=== PATIENT | female | born 1965 | race Caucasian/White ===

== ENCOUNTER 2022-06-29 15:02 | Emergency (ER) | payer MEDICAID, OTHER ==
[~2022-06-29] VITALS: Ht 175.3 cm; Wt 53.6 kg
[2022-06-29 16:08] VITALS: BP 121/85
== END 2022-06-29 18:27 | disposition left against medical advice (07) ==
LOC: EMS 15:02
DX: Z53.21 Procedure and treatment not carried out due to patient leaving prior to being seen by health care provider (principal)

== ENCOUNTER 2022-10-31 12:16 | Inpatient (IN) | payer MEDICAID, OTHER ==
[~2022-10-31] VITALS: Ht 170.2 cm; Wt 84.7 kg
[2022-10-31] MEDS ORDERED: FUROSEMIDE 40 MG/4 ML VIAL IVP ONE (13:00)
[2022-10-31] MEDS ORDERED: LORazepam 2 MG/ML VIAL IM ONE (13:45)
[2022-10-31 14:35] LABS: COVID AG,FIA SOURCE NASOPHARYNGEAL
[2022-10-31] MEDS ORDERED: LORazepam 2 MG/ML VIAL IVP ONE (16:30)
[2022-10-31 17:07] LABS: BASOPHILS % (AUTO) 1.9 % (0.0-2.0); EOSINOPHILS % (AUTO) 0.3 % (1.0-6.0); HEMATOCRIT 36.4 % (36-46); HEMOGLOBIN 10.9 g/dL (12.0-16.0); LYMPHOCYTES # (AUTO) 1.3 K/uL (1.0-4.8); LYMPHOCYTES % (AUTO) 18.3 % (22.0-44.0); MEAN CORPUSCULAR HEMOGLOBIN 22.8 pg (26.0-34.0); MEAN CORPUSCULAR HGB CONC 29.8 G/dL (31.0-37.0); MEAN CORPUSCULAR VOLUME 77 fL (80-100); MONOCYTES # (AUTO) 0.6 K/uL (0.1-1.0); MONOCYTES % (AUTO) 8.2 % (2.0-9.0); NEUTROPHILS % (AUTO) 71.3 % (40.0-70.0); PLATELET COUNT (AUTO) 232 K/uL (150-450); RED BLOOD CELL COUNT(AUTO) 4.76 MIL/uL (4.00-5.20); RED CELL DISTRIBUTION WIDTH 18.5 % (11.5-14.5)
[2022-10-31 17:18] LABS: ANION GAP 8 mmol/L (8-16); CALCIUM, TOTAL 8.5 mg/dL (8.8-10.5); CARBON DIOXIDE 29 mmol/L (22-29); CHLORIDE 104 mmol/L (98-107); CREATININE 0.84 mg/dL (0.60-1.30); GLUCOSE,RANDOM 105 mg/dL (70-110); POTASSIUM 4.3 mmol/L (3.5-5.1); SODIUM SERUM 141 mmol/L (136-145); UREA NITROGEN, BLOOD 26 mg/dL (7-18)
[2022-10-31 17:21] LABS: GLOMERULAR FILTR. RATE CALC > 60 mL/min (>60)
[2022-10-31 17:22] LABS: ALANINE AMINOTRANSFERASE 22 U/L (12-78); ALKALINE PHOSPHATASE 175 U/L (46-116); ASPARTATE AMINOTRANSFERASE 44 U/L (15-37); BILIRUBIN,TOTAL 1.1 mg/dL (0.1-1.0); TOTAL PROTEIN, SERUM 7.4 g/dL (6.4-8.2)
[2022-10-31 17:23] LABS: ALBUMIN 2.7 g/dL (3.4-5.0)
[2022-10-31 17:29] LABS: B-TYPE NATRIURETIC PEPTIDE 3450 pg/mL (0-100)
[2022-10-31] MEDS ORDERED: ACETAMINOPHEN 325 MG TABLET PO PRN (18:30)
[2022-10-31] MEDS ORDERED: ONDANSETRON HCL 4 MG/2 ML VIAL IVP PRN ×2 (18:30→23:45)
[2022-10-31] MEDS ORDERED: SERT-438 PO (23:31)
[2022-10-31] MEDS ORDERED: LISI2.5T13 PO (23:31)
[2022-10-31] MEDS ORDERED: LOSA-381 PO (23:31)
[2022-10-31] MEDS ORDERED: APIX5TAB PO (23:31)
[2022-10-31] MEDS ORDERED: FURO20TA4 PO (23:31)
[2022-10-31] MEDS ORDERED: SPIR-37 PO (23:31)
[2022-10-31] MEDS ORDERED: METO-408 PO (23:31)
[2022-10-31 23:45] VITALS: BP 135/87
[2022-10-31] MEDS ORDERED: IPRATROPIUM BROMIDE 0.5 MG/2.5 ML NEB SOLUTION NEB PRN (23:45)
[2022-10-31] MEDS ORDERED: HYDROCODONE/ACETAMINOPHEN 5-325 MG TABLET PO PRN (23:45)
[2022-10-31] MEDS ORDERED: MAGNESIUM HYDROXIDE SUSPENSION 30 ML UDCUP PO PRN (23:45)
[2022-10-31] MEDS ORDERED: ZOLPIDEM TARTRATE 5 MG TABLET PO PRN (23:45)
[2022-10-31] MEDS ORDERED: ALBUTEROL SULFATE 2.5 MG/0.5 ML NEB SOLUTION NEB PRN (23:45)
[2022-10-31] MEDS ORDERED: BISACODYL 10 MG RECTAL RECTAL SUPPOSITORY PR PRN (23:45)
[2022-10-31] MEDS ORDERED: MORPHINE SULFATE 2 MG/ML SYRINGE IVP PRN (23:45)
[2022-11-01 04:28] VITALS: BP 128/73
[2022-11-01 08:15] VITALS: BP 143/79
[2022-11-01] MEDS ORDERED: LISINOPRIL 5 MG TABLET PO SCH ×2 (09:00)
[2022-11-01 10:02] VITALS: BP 136/96
[2022-11-01] MEDS: SPIRONOLACTONE 25 MG TABLET PO SCH (10:07)
[2022-11-01] MEDS: LOSARTAN POTASSIUM 25 MG TABLET PO SCH (10:07)
[2022-11-01] MEDS: PANTOPRAZOLE SODIUM 40 MG DR TABLET PO SCH (10:08)
[2022-11-01] MEDS: METOPROLOL SUCCINATE 25 MG ER TABLET PO SCH (10:08)
[2022-11-01] MEDS: FUROSEMIDE 40 MG/4 ML VIAL IVP SCH ×2 (10:08→21:45)
[2022-11-01] MEDS: APIXABAN 5 MG TABLET PO SCH ×2 (10:08→21:45)
[2022-11-01 11:41] VITALS: BP 123/64
[2022-11-01 15:10] LABS: APPEARANCE,URINE CLEAR (CLEAR); BILIRUBIN,URINE NEGATIVE (NEGATIVE); GLUCOSE, URINE (UA) NEGATIVE (NEGATIVE); KETONES,URINE NEGATIVE (NEGATIVE); LEUKOCYTE ESTERASE ,URINE MODERATE (NEGATIVE); NITRATE,URINE NEGATIVE (NEGATIVE); OCCULT BLOOD,URINE LARGE (NEGATIVE); PROTEIN,URINE 30-70 mg/dL (NEGATIVE); SPECIFIC GRAVITIY, URINE 1.013 (1.003-1.030)
[2022-11-01 15:16] LABS: AMPHET/METH SCREEN,URINE POSITIVE (NEGATIVE); BARBITURATE SCREEN, URINE NEGATIVE (NEGATIVE); BENZODIAZEPINES SCREEN,URINE NEGATIVE (NEGATIVE); CANNABINOID SCREEN,URINE NEGATIVE (NEGATIVE); COCAINE SCREEN,URINE NEGATIVE (NEGATIVE); METHADONE SCREEN, URINE NEGATIVE (NEGATIVE); OPIATE SCREEN,URINE NEGATIVE (NEGATIVE)
[2022-11-01 15:17] LABS: PHENCYCLIDINE SCREEN,URINE NEGATIVE (NEGATIVE)
[2022-11-01 16:10] LABS: BACTERIA,URINE Rare /HPF (None Seen)
[2022-11-01 19:38] VITALS: BP 101/66
[2022-11-02 03:54] VITALS: BP 108/70
[2022-11-02 08:14] VITALS: BP 102/70
[2022-11-02] MEDS: LOSARTAN POTASSIUM 25 MG TABLET PO SCH (09:30)
[2022-11-02] MEDS: METOPROLOL SUCCINATE 25 MG ER TABLET PO SCH (09:30)
[2022-11-02] MEDS: PANTOPRAZOLE SODIUM 40 MG DR TABLET PO SCH (09:30)
[2022-11-02] MEDS: APIXABAN 5 MG TABLET PO SCH ×2 (09:30→20:00)
[2022-11-02] MEDS: SPIRONOLACTONE 25 MG TABLET PO SCH (09:30)
[2022-11-02] MEDS: FUROSEMIDE 40 MG/4 ML VIAL IVP SCH ×2 (09:31→20:00)
[2022-11-02 11:28] VITALS: BP 117/79
[2022-11-02 13:43] LABS: BASOPHILS % (AUTO) 1.2 % (0.0-2.0); EOSINOPHILS % (AUTO) 1.1 % (1.0-6.0); HEMOGLOBIN 10.6 g/dL (12.0-16.0); LYMPHOCYTES # (AUTO) 1.8 K/uL (1.0-4.8); LYMPHOCYTES % (AUTO) 23.5 % (22.0-44.0); MEAN CORPUSCULAR HEMOGLOBIN 23.1 pg (26.0-34.0); MEAN CORPUSCULAR HGB CONC 30.4 G/dL (31.0-37.0); MEAN CORPUSCULAR VOLUME 76 fL (80-100); MONOCYTES # (AUTO) 0.8 K/uL (0.1-1.0); NEUTROPHILS # (AUTO) 4.7 K/uL (1.8-7.7); NEUTROPHILS % (AUTO) 63.2 % (40.0-70.0); PLATELET COUNT (AUTO) 248 K/uL (150-450); RED CELL DISTRIBUTION WIDTH 18.6 % (11.5-14.5)
[2022-11-02 14:00] LABS: CREATININE 1.04 mg/dL (0.60-1.30); POTASSIUM 4.2 mmol/L (3.5-5.1)
[2022-11-02 14:01] LABS: CALCIUM, TOTAL 8.2 mg/dL (8.8-10.5)
[2022-11-02 14:06] LABS: ALBUMIN 2.6 g/dL (3.4-5.0); BILIRUBIN,TOTAL 0.7 mg/dL (0.1-1.0); TOTAL PROTEIN, SERUM 7.5 g/dL (6.4-8.2)
[2022-11-02] MEDS: CefTRIAXone 1 GM/DEXTROSE 50 ML IV SCH (14:33)
[2022-11-02 15:28] VITALS: BP 113/53
[2022-11-02] MEDS: ACETAMINOPHEN 325 MG TABLET PO PRN (19:59)
[2022-11-02 20:07] VITALS: BP 119/75
[2022-11-02 23:46] VITALS: BP 115/70
[2022-11-03 04:45] VITALS: BP 125/80
[2022-11-03 07:12] VITALS: BP 119/80
[2022-11-03] MEDS: SPIRONOLACTONE 25 MG TABLET PO SCH (09:25)
[2022-11-03] MEDS: PANTOPRAZOLE SODIUM 40 MG DR TABLET PO SCH (09:25)
[2022-11-03] MEDS: APIXABAN 5 MG TABLET PO SCH ×2 (09:26→21:02)
[2022-11-03] MEDS: METOPROLOL SUCCINATE 25 MG ER TABLET PO SCH (09:26)
[2022-11-03] MEDS: LOSARTAN POTASSIUM 25 MG TABLET PO SCH (09:26)
[2022-11-03] MEDS: FUROSEMIDE 40 MG/4 ML VIAL IVP SCH ×3 (09:26→21:02)
[2022-11-03] MEDS: ACETAMINOPHEN 325 MG TABLET PO PRN (09:31)
[2022-11-03 11:14] VITALS: BP 126/72
[2022-11-03 11:53] LABS: EOSINOPHILS % (AUTO) 1.1 % (1.0-6.0); HEMATOCRIT 34.3 % (36-46); HEMOGLOBIN 10.6 g/dL (12.0-16.0); LYMPHOCYTES # (AUTO) 1.6 K/uL (1.0-4.8); LYMPHOCYTES % (AUTO) 20.4 % (22.0-44.0); MEAN CORPUSCULAR HEMOGLOBIN 23.3 pg (26.0-34.0); MEAN CORPUSCULAR VOLUME 75 fL (80-100); MONOCYTES # (AUTO) 0.7 K/uL (0.1-1.0); MONOCYTES % (AUTO) 9.1 % (2.0-9.0); NEUTROPHILS # (AUTO) 5.2 K/uL (1.8-7.7); NEUTROPHILS % (AUTO) 68.4 % (40.0-70.0); PLATELET COUNT (AUTO) 237 K/uL (150-450); RED BLOOD CELL COUNT(AUTO) 4.55 MIL/uL (4.00-5.20); RED CELL DISTRIBUTION WIDTH 18.8 % (11.5-14.5)
[2022-11-03 12:08] LABS: ANION GAP 9 mmol/L (8-16); CALCIUM, TOTAL 8.1 mg/dL (8.8-10.5); CARBON DIOXIDE 25 mmol/L (22-29); CHLORIDE 100 mmol/L (98-107); CREATININE 0.94 mg/dL (0.60-1.30); GLOMERULAR FILTR. RATE CALC > 60 mL/min (>60); GLUCOSE,RANDOM 152 mg/dL (70-110); POTASSIUM 4.3 mmol/L (3.5-5.1); SODIUM SERUM 134 mmol/L (136-145); UREA NITROGEN, BLOOD 31 mg/dL (7-18)
[2022-11-03 15:54] VITALS: BP 117/84
[2022-11-03] MEDS: CefTRIAXone 1 GM/DEXTROSE 50 ML IV SCH (18:50)
[2022-11-03 19:57] VITALS: BP 118/89
[2022-11-04 04:44] VITALS: BP 123/20
[2022-11-04 07:30] VITALS: BP 123/70
[2022-11-04] MEDS: LOSARTAN POTASSIUM 25 MG TABLET PO SCH (09:14)
[2022-11-04] MEDS: FUROSEMIDE 40 MG/4 ML VIAL IVP SCH ×3 (09:14→21:18)
[2022-11-04] MEDS: SPIRONOLACTONE 25 MG TABLET PO SCH (09:14)
[2022-11-04] MEDS: APIXABAN 5 MG TABLET PO SCH ×2 (09:14→21:18)
[2022-11-04] MEDS: PANTOPRAZOLE SODIUM 40 MG DR TABLET PO SCH (09:15)
[2022-11-04] MEDS: METOPROLOL SUCCINATE 25 MG ER TABLET PO SCH (09:15)
[2022-11-04 12:00] VITALS: BP 110/80
[2022-11-04] MEDS: CefTRIAXone 1 GM/DEXTROSE 50 ML IV SCH (14:17)
[2022-11-04 16:00] VITALS: BP 109/69
[2022-11-04 20:52] VITALS: BP 127/66
[2022-11-05 04:00] VITALS: BP 125/86
[2022-11-05 09:12] VITALS: BP 116/71
[2022-11-05] MEDS: SPIRONOLACTONE 25 MG TABLET PO SCH (09:15)
[2022-11-05] MEDS: METOPROLOL SUCCINATE 25 MG ER TABLET PO SCH (09:16)
[2022-11-05] MEDS: PANTOPRAZOLE SODIUM 40 MG DR TABLET PO SCH (09:16)
[2022-11-05] MEDS: LOSARTAN POTASSIUM 25 MG TABLET PO SCH (09:16)
[2022-11-05] MEDS: FUROSEMIDE 40 MG/4 ML VIAL IVP SCH ×2 (09:16→21:00)
[2022-11-05] MEDS: APIXABAN 5 MG TABLET PO SCH ×2 (09:17→21:54)
[2022-11-05] MEDS ORDERED: METO-408 PO (11:42)
[2022-11-05] MEDS ORDERED: APIX5TAB PO (11:42)
[2022-11-05] MEDS ORDERED: FURO-151 PO (11:42)
[2022-11-05] MEDS ORDERED: SERT-438 PO (11:42)
[2022-11-05] MEDS ORDERED: LOSA-381 PO (11:42)
[2022-11-05] MEDS ORDERED: DOXY-354 PO (11:42)
[2022-11-05] MEDS ORDERED: SPIR-37 PO (11:42)
[2022-11-05 12:27] VITALS: BP 117/79
[2022-11-05] MEDS: CefTRIAXone 1 GM/DEXTROSE 50 ML IV SCH (14:09)
== END 2022-11-06 06:00 | disposition home or self-care (01) | DRG 194 ==
LOC: EMS 12:16 → 5S 21:52
PROVIDERS: ADMIT Hospitalist; ATTEND Hospitalist
DX: I50.23 Acute on chronic systolic (congestive) heart failure (principal); G92.9 Unspecified toxic encephalopathy; E43 Unspecified severe protein-calorie malnutrition; F15.10 Other stimulant abuse, uncomplicated; Z20.822 Contact with and (suspected) exposure to COVID-19; F17.210 Nicotine dependence, cigarettes, uncomplicated; S81.802A Unspecified open wound, left lower leg, initial encounter; X58.XXXA Exposure to other specified factors, initial encounter; N39.0 Urinary tract infection, site not specified; R23.0 Cyanosis; R35.0 Frequency of micturition; F41.9 Anxiety disorder, unspecified; I51.3 Intracardiac thrombosis, not elsewhere classified; Z59.00 Homelessness unspecified; Z78.1 Physical restraint status; Z68.29 Body mass index [BMI] 29.0-29.9, adult; Z79.899 Other long term (current) drug therapy; Y93.89 Activity, other specified; Y92.89 Other specified places as the place of occurrence of the external cause; Y99.8 Other external cause status
CPT/HCPCS: 70450; 71045; 80048; 80053; 80307; 81001; 83880; 84484; 85025; 87086; 87186; 93005; 93306; 97162; 97530; 97535; 99285; G0378; J0696; J1940; J2060; 36415-L1; 36415-TC